=== PATIENT | male | born 2000 | race Caucasian/White ===

== ENCOUNTER 2023-08-25 21:00 | Emergency (ER) | payer OTHER, SELFPAY ==
[2023-08-25 21:04] VITALS: BP 136/95
[2023-08-26 00:13] VITALS: BP 133/74; BMI 27.5
--- NOTE | 2023-08-26 00:14 | ED.GENMED ---
History of Present Illness
General
Chief Complaint: Musculo-Skeletal Complaint
Source: patient
Time Seen by Provider: 08/26/23 00:08
Travel History
Have you had any contact with someone who has COVID-19?: No
Do you have any symptoms of coronavirus? Fever > 100 degrees, chills, cough, shortness of breath, sore throat, loss of taste or smell, muscle aches, or headache?: No
History of Present Illness
History of Present Illness:
23-year-old male with past medical history of asthma presenting emergency department for evaluation after he injured his right knee and ankle while playing baseball running to first base he said he stretched and his knee hyperextended now with pain
and swelling to both the right knee and ankle. Patient was able to ambulate following but does note pain. He also notes an abrasion to his hip/back area. No other injuries sustained or any other concerns. Did not take for pain prior to arrival.
Past History
Past History
ED Past Medical History: Asthma
ED Past Surgical History: None
Social History
Tobacco: Non-smoker
Alcohol: Occasional
Drug: None
Personal: Single
Living: with family
Review of Systems
Review of Systems
All Other Systems: ROS reviewed and negative except as documented in HPI and ROS
Phy Exam
Physical Exam
Physical Exam:
GENERAL: Alert , in no apparent distress
EYE: conjunctiva clear
Head: Normocephalic atraumatic
NECK: Supple,
ENT: mmm.
LUNGS: no acute respiratory distress
NEUROLOGICAL: Alert and oriented
SKIN: Warm and dry, skin intact.
MUSCULOSKELETAL: Right knee: No obvious deformity, erythema, ecchymosis abrasions or lacerations. Patient allows for full active and passive range of motion of without much difficulty. There is mild tenderness suprapatella but no obvious joint
effusion appreciated. No significant laxity when compared to the left knee. Right ankle has some mild tenderness and edema laterally around the malleolus. Extremities otherwise warm and well-perfused and neurovascularly intact.
PSYCH: Normal and appropriate interaction.
Scores
Heart Failure Risk
Heart Failure Risk Score: Not Applicable
Heart Score for Chest Pain Patients
STEMI patient?: Not applicable
Withdrawal Assessment of Alcohol
Withdrawal Assessment Completed?: Not applicable
Course
Orders/Labs/Results
Orders:
Orders
08/25/23 21:09
CR Ankle - Right Min 3 Views * Urgent
Comment:
Reason For Exam: injury
CR Knee- Right 4 Or More View* Urgent
Comment:
Reason For Exam: injury
08/26/23 00:15
Crutches-Treatment ONCE
Knee Immobilizer Right-Treatme ONCE
Vital Signs
Initial and Last Documented VS:
Initial Vital Signs
Temp Pulse Resp BP Pulse Ox
98.1 F 97 20 136/95 99
08/25/23 21:04 08/25/23 21:04 08/25/23 21:04 08/25/23 21:04 08/25/23 21:04
Last Documented Vital Signs
Temp Pulse Resp BP Pulse Ox
98.1 F 97 18 133/74 98
08/25/23 21:04 08/26/23 00:13 08/26/23 00:13 08/26/23 00:13 08/26/23 00:13
MDM/Problems Addressed
Differential Diagnosis Includes:
Sprain, ligamentous injury, meniscal injury, fracture
MDM/Problems Addressed:
23-year-old male presenting emergency department for evaluation of right knee and ankle pain following an injury while playing baseball. X-rays were ordered from triage and ultimately unremarkable for any fracture. Given the mechanism for knee
injury will place in a knee immobilizer. Encourage close outpatient orthopedics follow-up, RICE recommendations advised. Crutches provided. Otherwise stable for discharge home.
*Radiology
Radiology exam reviewed: preliminary read by ED provider (No acute fracture)
*Pulse Oximetry
Patient hypoxic: no
*Critical Care Note
Total Time (30-74mins, 75-104mins- exclusive of procedures): Not Applicable
ED Attending Note
-
Portions of this chart may have been created with voice recognition software.� Occasional wrong word or��sound alike� substitutions may have occurred due to the inherent limitations of voice recognition software.
Discharge Plan
Departure
Patient Disposition: Home (Routine Discharge)
Date of Disposition: 08/26/23
Time of Disposition: 00:14
Patient with high blood pressure during this ER visit?: Yes
Discharge Problem:
Right knee sprain, Right ankle sprain, Abrasion of back
Instructions: Knee Sprain (DC)
Prescriptions:
No Action
No Current Medications
0
Referrals:
Jazzmine Bryan, [Active] - (Ortho)
Interventions
Interventions:
*Risk Screen - Suicide Last Done: 08/25/23 21:04
*General Assessment Last Done: 08/25/23 21:04
*Neglect/Abuse Screening Last Done: 08/25/23 21:04
ED- Fall Risk Assessment Last Done: 08/26/23 00:17
*ED COVID-19 Vaccine History Last Done: 08/26/23 00:32
*Nursing Disposition Last Done: 08/26/23 00:32
ED-Musculoskeletal Assessment Last Done: 08/26/23 00:17
Discharge Date and Time
Discharge Date/Time: 08/26/23 00:30
Print Language: LAO
== END 2023-08-26 00:30 | disposition home or self-care (01) ==
LOC: EMR 21:00
PROVIDERS: EMERGENCY PHYSICIAN Emergency Medicine; FAMILY PHYSICIAN Family Medicine
DX: S83.91XA Sprain of unspecified site of right knee, initial encounter (principal); S93.401A Sprain of unspecified ligament of right ankle, initial encounter; S30.810A Abrasion of lower back and pelvis, initial encounter; X50.1XXA Overexertion from prolonged static or awkward postures, initial encounter; R03.0 Elevated blood-pressure reading, without diagnosis of hypertension
CPT/HCPCS: 99283; 29505; 73564; 73610